=== PATIENT | female | born 1985 | race Caucasian/White ===

== ENCOUNTER 2017-08-22 15:47 | Emergency (ER) | payer OTHER ==
[~2017-08-22] VITALS: Ht 152.4 cm; Wt 77.1 kg
[2017-08-22 17:41] VITALS: BP 121/78
== END 2017-08-22 17:41 | disposition home or self-care (01) ==
LOC: ED 15:47
DX: S76.012A Strain of muscle, fascia and tendon of left hip, initial encounter (principal); X58.XXXA Exposure to other specified factors, initial encounter; Y93.89 Activity, other specified; Y92.89 Other specified places as the place of occurrence of the external cause; Y99.8 Other external cause status
CPT/HCPCS: J3010

== ENCOUNTER 2017-10-11 13:49 | Emergency (ER) | payer OTHER ==
[~2017-10-11] VITALS: Ht 149.9 cm; Wt 78.7 kg
[2017-10-11 14:39] VITALS: BP 128/63
== END 2017-10-11 17:41 | disposition home or self-care (01) ==
LOC: ED 13:49
DX: S33.5XXA Sprain of ligaments of lumbar spine, initial encounter (principal); Z98.51 Tubal ligation status; X58.XXXA Exposure to other specified factors, initial encounter; Y93.89 Activity, other specified; Y99.8 Other external cause status; Y92.89 Other specified places as the place of occurrence of the external cause
CPT/HCPCS: J2270; J2405